=== PATIENT | male | born 1940 | race Caucasian/White ===

== ENCOUNTER 2022-11-07 04:42 | Inpatient (IN) | payer OTHER, MEDICAID ==
[~2022-11-07] VITALS: Ht 180.3 cm; Wt 63.5 kg
[2022-11-07 04:50] VITALS: BP_SYST 105
--- NOTE | 2022-11-07 05:42 | NUR ---
pt to ed 2 from local half-way. pt with large amout of soft brown feces coming throug clothes and on clothes. all clothes removed and pt cleaned. assessment completed. awaiting md godfrey and orders.
--- NOTE | 2022-11-07 06:23 | NUR ---
urine collected and covid swab collected and sent to lab.
--- NOTE | 2022-11-07 07:00 | NUR ---
called the facility the third time to get information but no answer.left voice message.
[2022-11-07 07:03] LABS: BASOPHILS % (AUTO) 0.4 % (0.0-2.0); EOSINOPHILS # (AUTO) 0.2 K/uL (0.0-0.4); EOSINOPHILS % (AUTO) 2.4 % (0.0-4.0); HEMATOCRIT 43.5 % (36-54); HEMOGLOBIN 15.3 g/dL (14.0-18.0); LYMPHOCYTES # (AUTO) 0.8 K/uL (1.0-5.5); LYMPHOCYTES % (AUTO) 8.5 % (20.5-51.5); MEAN CORPUSCULAR HEMOGLOBIN 31 pg (27-31); MEAN CORPUSCULAR HGB CONC 35 % (32-36); MEAN CORPUSCULAR VOLUME 89 fL (79.0-98.0); MONOCYTES # (AUTO) 1.1 K/uL (0.0-1.0); MONOCYTES % (AUTO) 11.1 % (1.7-9.3); NEUTROPHILS # (AUTO) 7.7 K/uL (1.8-7.7); NEUTROPHILS % (AUTO) 77.6 % (40.0-70.0); PLATELET COUNT (AUTO) 223 K/uL (130-430); RED CELL DISTRIBUTION WIDTH 13.1 % (9.0-15.0); WHITE BLOOD COUNT (AUTO) 9.9 K/uL (4.8-10.8)
[2022-11-07 07:12] LABS: ANION GAP 8 (5-15); CALCIUM 8.2 mg/dL (8.4-11.0); CHLORIDE 106 mmol/L (98-107); CREATININE 0.82 mg/dL (0.55-1.30); GLUCOSE 114 mg/dL (70-99); UREA NITROGEN, BLOOD 13 mg/dL (8-21)
[2022-11-07 07:20] LABS: ALANINE AMINOTRANSFERASE 23 U/L (12-78); ASPARTATE AMINOTRANSFERASE 16 U/L (10-37); LIPASE 52 U/L (73-393)
[2022-11-07] MEDS ORDERED: SER25 PO (07:43)
[2022-11-07] MEDS ORDERED: LORA-258 PO (07:43)
[2022-11-07] MEDS ORDERED: LACT10SO6 PO (07:43)
[2022-11-07] MEDS ORDERED: ACET160S2 PO (07:43)
[2022-11-07] MEDS ORDERED: DEXAMETHASONE SOD PHOSPHATE 4 MG/ML VIAL IVP ONE (07:45)
[2022-11-07] MEDS ORDERED: NACL 0.9% 1,000 ML IV ONE (07:45)
--- NOTE | 2022-11-07 08:10 | NUR ---
Admit bed requested Patient will be admitted to care of . Admitted to TELE unit. Diagnosis ALOC Inpatient (Yes or No) Y Observation (Yes or No) N Orientation concerns or request close to nursing station (Yes or No) N Covid Status POSI On vent or bipap N Isolation requirements Y Needs a sitter N From Home (Yes or if No enter name of facility) N Requires Dialysis (Yes or No) N Med Rec Completed (Yes of No) Y
[2022-11-07 08:31] LABS: BILIRUBIN,URINE NEGATIVE (NEGATIVE); BLOOD, URINE 2+ (NEGATIVE); CLARITY/URINE CLEAR (CLEAR); COLOR,URINE YELLOW (YELLOW); GLUCOSE,URINE NEGATIVE (NEGATIVE); KETONES,URINE NEGATIVE (NEGATIVE); PH,URINE 6.5 (5.0-8.0); PROTEIN URINE NEGATIVE (NEGATIVE)
[2022-11-07 08:32] LABS: LEUKOCYTE ESTERASE ,URINE NEGATIVE (NEGATIVE); NITRITE, URINE NEGATIVE (NEGATIVE)
[2022-11-07 08:33] LABS: BACTERIA,URINE RARE /HPF (None Seen); MUCUS,URINE 1+ /LPF (None Seen); WBC,URINE 0-3 /HPF (0-3)
--- NOTE | 2022-11-07 08:40 | NUR ---
Assumed care of patient. Patient vitals obtained and documented. Patient stable, semi-fowlers in bed.
--- NOTE | 2022-11-07 09:20 | NUR ---
Patient admitted to Tele Unit Room 133A. Report given to Arin RN and Jamin RN. Patient transfered to bed and placed on functioning Tele monitor. Patient stable and bed rails up in care of the two RNs. VS input in discharge note.
[2022-11-07 09:27] VITALS: BP_SYST 136
--- NOTE | 2022-11-07 09:27 | NUR ---
admission note: patient is transferred from ER via gurney. No pain or discomfort notes at this time. Patient is non-verbal. physical assessment is done and vitals are checked. Assessment data are gathered from Amanda. Bed in the lowest position and side rails x4 up for altered level of conscious. Room camera is on. Will continue to monitor.
[2022-11-07 10:10] VITALS: BP_SYST 136
[2022-11-07] MEDS ORDERED: ACETAMINOPHEN 325 MG TABLET PO PRN (10:15)
--- NOTE | 2022-11-07 10:39 | NUR ---
Note: Patient is transferred to CT head scan via hospital bed.
--- NOTE | 2022-11-07 10:56 | NUR ---
Note: patient is returned to floor via hospital bed. No pain or discomfort at this time.
[2022-11-07] MEDS: D5LR 1,000 ML IV SCH (12:57)
--- NOTE | 2022-11-07 13:52 | NUR ---
CONSULTATION PAGED/CALLED Reason for Consultation: [] COVID Person Who was Notified: [] CARMEN Consulting Physician: [] DR MOISES LOPEZ Carding Doubler Specialty: [] ID Ordering Physician: [] DR FAITH
[2022-11-07 16:00] VITALS: BP_SYST 141
[2022-11-07] MEDS ORDERED: QUEtiapine FUMARATE 25 MG TABLET PO SCH (18:00)
--- NOTE | 2022-11-07 19:05 | NUR ---
closing note: patient is awake and sitting quietly on the bed. Assisted to feed dinner. Swallowing well. No pain or discomfort or distress are noted at this time. Bed in the lowest position and side rails x3 on. Patient is monitoring under a camera and close to nursing station. Will endorse lacquer pin press operator nurse to continue patient care.
[2022-11-07 20:00] VITALS: BP_SYST 116
--- NOTE | 2022-11-07 20:00 | NUR ---
pt agitated and out from the bed .assisted back and propped to 30-45. offered a warm CHG bath. phototypesetting equipment monitor leads replaced .informed Dr Max of increased agitation received a med order
[2022-11-07] MEDS: HYDROCORTISONE 1%, 28.35 GM TOPICAL CREAM TP SCH (20:27)
[2022-11-07] MEDS: LORazepam 2 MG/ML VIAL IVP PRN (20:39)
--- NOTE | 2022-11-08 | NUR ---
pt resting in bed offered some shakes earlier
[2022-11-08 00:43] VITALS: BP_SYST 111
[2022-11-08 04:00] VITALS: BP_SYST 116
--- NOTE | 2022-11-08 04:39 | NUR ---
bed maintained on low position.alarm on.cam [address]vitals done and updated
[2022-11-08 06:52] LABS: ANION GAP 8 (5-15); CALCIUM 8.3 mg/dL (8.4-11.0); CHLORIDE 108 mmol/L (98-107); CREATININE 0.78 mg/dL (0.55-1.30); GLUCOSE 113 mg/dL (70-99); UREA NITROGEN, BLOOD 17 mg/dL (8-21)
[2022-11-08 07:57] LABS: BASOPHILS # (AUTO) 0.1 K/uL (0.0-0.2); BASOPHILS % (AUTO) 0.7 % (0.0-2.0); EOSINOPHILS % (AUTO) 0.5 % (0.0-4.0); HEMATOCRIT 39.7 % (36-54); HEMOGLOBIN 14.1 g/dL (14.0-18.0); LYMPHOCYTES # (AUTO) 0.9 K/uL (1.0-5.5); LYMPHOCYTES % (AUTO) 8.5 % (20.5-51.5); MEAN CORPUSCULAR HEMOGLOBIN 32 pg (27-31); MEAN CORPUSCULAR HGB CONC 36 % (32-36); MEAN CORPUSCULAR VOLUME 89 fL (79.0-98.0); MONOCYTES % (AUTO) 9.9 % (1.7-9.3); NEUTROPHILS # (AUTO) 8.1 K/uL (1.8-7.7); NEUTROPHILS % (AUTO) 80.4 % (40.0-70.0); PLATELET COUNT (AUTO) 207 K/uL (130-430); RED BLOOD CELL COUNT(AUTO) 4.47 MIL/uL (4.2-6.2); RED CELL DISTRIBUTION WIDTH 13.1 % (9.0-15.0); WHITE BLOOD COUNT (AUTO) 10.1 K/uL (4.8-10.8)
[2022-11-08 08:00] VITALS: BP_SYST 106
[2022-11-08] MEDS: HYDROCORTISONE 1%, 28.35 GM TOPICAL CREAM TP SCH (09:21)
[2022-11-08] MEDS: LORazepam 2 MG/ML VIAL IVP PRN (09:27)
[2022-11-08 13:18] VITALS: BP_SYST 117
[2022-11-08 16:48] VITALS: BP_SYST 116
--- NOTE | 2022-11-08 19:00 | NUR ---
Received in bed awake.had dinner vitals done Bps 115/52 Hr 83 RR 18. has ivf in progress.neuro assessment not able to follow commands
[2022-11-08] MEDS: D5LR 1,000 ML IV SCH (19:11)
[2022-11-08] MEDS: QUEtiapine FUMARATE 25 MG TABLET PO SCH (19:13)
[2022-11-08 20:00] VITALS: BP_SYST 115
--- NOTE | 2022-11-08 22:00 | NUR ---
cleaned with a CHG bath and linen changed
[2022-11-09 01:48] VITALS: BP_SYST 97
[2022-11-09 06:13] VITALS: BP_SYST 150
[2022-11-09 08:00] VITALS: BP_SYST 119
--- NOTE | 2022-11-09 08:00 | NUR ---
ASSESSMENT COMPLETED AT THIS TIME PT AWAKE NON ORIENTED FOLLOWS COMMANDS APPEARS TO BE IN NO PAIN WITH FLACC PAIN SCALE ASSISSTED WITH BREAKFAST BED ALARM ON BED IN LOW POSITION COVID PRECAUTIONS OBSERVED WILL CONTINUE TO MONITOR AND ASSESS CALL LIGHT WITHIN REACH WILL CONTINUE TO MONITOR AND ASSESS
[2022-11-09] MEDS: LORazepam 2 MG/ML VIAL IVP PRN (08:45)
[2022-11-09] MEDS: HYDROCORTISONE 1%, 28.35 GM TOPICAL CREAM TP SCH ×2 (08:46→21:13)
--- NOTE | 2022-11-09 13:38 | NUR ---
Dietitian Recommendations * Ordered: Finely Chopped, Mechanical Soft, Lacto-vegetarian diet * Ordered: Snacks BID Submitted for DONELL Lopez by Sowmya Matthew, MPH, RD Please see Nutrition Assessment for further details. Thanks!
--- NOTE | 2022-11-09 14:52 | NUR ---
care endorsed to rn at this time
--- NOTE | 2022-11-09 14:52 | NUR ---
Nurse Notes: RN endorsed patient to INBOUND CUSTOMER SERVICE AGENT, full report given. Patient sleeping in bed. Patient breathing even and unlabored on room air. No pain, no distress, no SOB. Bed is locked in lowest position. Call light within reach, all needs met, will continue with plan of care.
--- NOTE | 2022-11-09 14:57 | NUR ---
14:30 Patient Report Nurse Notes: Patient laying in bed ALOX4. Patient breathing even and unlabored on room air. No pain, no distress, no SOB. Bed is locked in lowest position. Call light within reach, all needs met, patient expected to discharge soon. 14:57 Discharge Nurse Notes: Patient in stable condition, breathing even and unlabored on room air. No pain, no distress, no SOB. Patient went home in private auto with . Addendum: 11/09/22 at 1525 by Сергей Hatch LVN Disregard above notes. Belong to different patient. Entered in error.
[2022-11-09] MEDS: D5LR 1,000 ML IV SCH ×2 (15:16→22:15)
--- NOTE | 2022-11-09 16:20 | NUR ---
Late Noon Nurse Notes: Patient sleeping in bed. Patient breathing even and unlabored on room air. No pain, no distress, no SOB. Bed is locked in lowest position. Call light within reach, all needs met, will continue with plan of care.
[2022-11-09 17:14] VITALS: BP_SYST 117
[2022-11-09] MEDS: QUEtiapine FUMARATE 25 MG TABLET PO SCH (17:57)
--- NOTE | 2022-11-09 18:40 | NUR ---
Closing Shift Nurse Notes: Patient laying in bed watching TV. Patient breathing even and unlabored on room air. No pain, no distress, no SOB. Bed is locked in lowest position. Call light within reach, all needs met, evening report to be given to retail shift supervisor soon.
--- NOTE | 2022-11-09 19:00 | NUR ---
received in bed awake oriented to self vitals done and recorded .offered a CHG bath and linen changed .assisted with Dinner pt ate about 50% of the meal offered later called enquiring about the patient
[2022-11-09 20:11] VITALS: BP_SYST 137
[2022-11-10] VITALS (9 sets, daily range): BP systolic 96–146
--- NOTE | 2022-11-10 | NUR ---
pt is asleep at this moment .IVF in progress
--- NOTE | 2022-11-10 06:00 | NUR ---
pts iv infusion in progress ,neuro assessment pt appears withdrawn.BPs 97/47 .repeated after 15 minutes .morning cares given, linen and position changed
--- NOTE | 2022-11-10 07:45 | NUR ---
received pt alert, disoriented, with only verbal response of "what?" previous iv removed due to infiltration; swollen, red, tender. new iv inserted immediately to right FA 20g. fluid per orders. bed alarm on, observed with video for safety.
[2022-11-10] MEDS: HYDROCORTISONE 1%, 28.35 GM TOPICAL CREAM TP SCH ×2 (09:43→21:53)
[2022-11-10] MEDS: LORazepam 2 MG/ML VIAL IVP PRN (11:40)
--- NOTE | 2022-11-10 11:40 | NUR ---
pt confused got out of bed in room. removed telemetry. seen by clinical research monitor who assisted pt back to bed. gown replaced, iv intact, fluid per orders. medicated by resource RN for agitation.
--- NOTE | 2022-11-10 12:21 | NUR ---
pt in bed. telemetry on; NSR respirations even, unlabored. no distress
--- NOTE | 2022-11-10 12:37 | NUR ---
Logging Tractor Operator DIRECTOR OF VENDOR MANAGEMENT received two voice mail mgs. from pts. , Amanda asking if someone could call her back as she urgently needed to speak to a social media manager. DIRECTOR OF VENDOR MANAGEMENT called Amanda back and she was very grateful. Amanda stated she believes her is going to need a SNF. Pt. came from [facility] [place] and will not be going back. feels pt. has a skilled need. DIRECTOR OF VENDOR MANAGEMENT had read in PT notes pt. is unable to walk and needs max. assist. added the B & C is too expensive and takes up all of her income leaving none for bills. Additionally, stated she was discharged from the hospital because she has heart failure and hypertension and needs to take medication, but is currently unable to get it delivered. Amanda's insurance, [employer] was going to have her meds. delivered but since she is staying with a friend in [facility], meds cannot be delivered unless she is in [facility]. DIRECTOR OF VENDOR MANAGEMENT asked if she can use a friends address in [facility]. but she stated she has so much going on and she said her is priority, has dementia and she cannot care for him as she has heart failure. DIRECTOR OF VENDOR MANAGEMENT provided with a couple of resources for free or low cost health care and asked her to call the numbers to see if she can get her meds. Lastly DIRECTOR OF VENDOR MANAGEMENT suggested she contact her insurance so they can help get her meds to her. DIRECTOR OF VENDOR MANAGEMENT will check in with her after the morning meeting. Addendum: 11/10/22 at 1404 by Alison HENDERSON Logging Tractor Operator DIRECTOR OF VENDOR MANAGEMENT called back to conduct a Discharge Planning. stated pt. had been at [facility] for a month and was discharged on 09/16/22 and the Cmm Inspector there found the B & C for ptAlex Alicia. Re. Amanda, she had also been in the hospital. She had passed out and someone called 911. the [place] police and paramedics stated she is unable to continue to care for pt. When she was in the hospital, she had been sent to [facility]. She is staying with a friend on her recliner at [address] [place] [address] in [place], but is not allowed to stay there. She has her name down and paperwork turned in for a alf apt. and is just waiting. Amanda stated her plan is to get a place and have pt. stay with her and she would care for him. Pt. can feed self and cooks and showers him. is also sick and is seems unlikely she would be able to provide care for pt. stated before his hospital stay at [facility], he was strong, walking on his own, feeding self and talking. At [facility], he had been prescribed a generic med for Seroquel. was in disagreement that pt was depressed or Schizophrenic. Amanda stated he does have Dementia. Amanda added at the B & C they were giving him 25 mg of generic seroquel in the morning and 25mg in the evening and he would wake up groggy. DIRECTOR OF VENDOR MANAGEMENT asked Amanda about any family. Amanda stated they have a daughter in [place] with 3 children and another daughter in [place]. DIRECTOR OF VENDOR MANAGEMENT asked if she has reached out to her daughters since she is now homeless. She stated she has not because they are upon hard times as well. DIRECTOR OF VENDOR MANAGEMENT asked about reaching out to her daughters. Amanda did not want to trouble them. They get a total of $1,400 in SSI and the B & C was $1325 monthly. Re. the PCP, Amanda asked if DIRECTOR OF VENDOR MANAGEMENT could call the B & C as they disenrollment ptAlex Alicia from insurance [employer]. Addendum: 11/10/22 at 1442 by Alison Niño DIRECTOR OF VENDOR MANAGEMENT guest services manager stated she cannot use her dtr Zonia in [place] as a resource because they are not on speaking terms. Other dtr. Baljeet in [place] is about to graduate from [employer], . gave DIRECTOR OF VENDOR MANAGEMENT permission to call this daughter. MSE called and left a message for Kasey. DIRECTOR OF VENDOR MANAGEMENT called [facility] contact, BRIEN Ames at [phone]. Joceline returned DIRECTOR OF VENDOR MANAGEMENT's phone call and agreed to help look for a room and board and B & C for pt. Joceline will also see if she can assist and help couple apply for [facility]. If she is able to find a placement, she will need a H & P and a facesheet, fax is [phone]. DIRECTOR OF VENDOR MANAGEMENT let Joceline know prefers [facility].
--- NOTE | 2022-11-10 15:26 | NUR ---
PHYSICAL THERAPY CO-SIGN The Physical Therapy Progress Notes documented by Exposure Machine Operator have been reviewed. Reviewed/Co-Signed by: Jase Kaur Documentation Done by:TRISTIN GLOVER Addendum: 11/10/22 at 1527 by Jase Kaur PT Amended: Links added.
[2022-11-10] MEDS: D5LR 1,000 ML IV SCH (17:44)
[2022-11-10] MEDS: QUEtiapine FUMARATE 25 MG TABLET PO SCH (17:44)
--- NOTE | 2022-11-10 19:30 | NUR ---
Recieved pt sitting in bed ,eating dinner.assisted pt, ate 75% dinner. cleaned and linen changed. vitals updated WNL
[2022-11-11] VITALS: BP_SYST 135
--- NOTE | 2022-11-11 | NUR ---
positioned to side .pt is oriented to self .no sign of pain observed .
--- NOTE | 2022-11-11 04:00 | NUR ---
Bed bathed, linen changed pts vitals are within the normal range
[2022-11-11 05:28] VITALS: BP_SYST 116
[2022-11-11 08:00] VITALS: BP_SYST 122
--- NOTE | 2022-11-11 08:00 | NUR ---
Opening Nurse Notes: Patient laying in bed. A/O x 1, Mosotho speaking. Patient breathing even and unlabored on room air. No pain, no distress, no SOB. Patient is on a mechanical soft diet. Patient has RFA 20g. Bed is locked in lowest position. Call light within reach, all needs met, will continue with plan of care.
[2022-11-11] MEDS: HYDROCORTISONE 1%, 28.35 GM TOPICAL CREAM TP SCH ×2 (09:38→21:13)
[2022-11-11] MEDS: D5LR 1,000 ML IV SCH (09:39)
[2022-11-11 11:56] VITALS: BP_SYST 130
--- NOTE | 2022-11-11 12:00 | NUR ---
Afternoon Nurse Notes: Patient laying in bed watching TV. Patient breathing even and unlabored on room air. No pain, no distress, no SOB. Bed is locked in lowest position. Call light within reach, all needs met, will continue with plan of care.
--- NOTE | 2022-11-11 12:36 | NUR ---
Mastercam Programmer SUPERVISOR DENTURE DEPARTMENT received a call back from pts. dtr in [place], . SUPERVISOR DENTURE DEPARTMENT called twice in hopes of reaching her. SUPERVISOR DENTURE DEPARTMENT called Joceline from [facility] left a message asking for an update SUPERVISOR DENTURE DEPARTMENT called Liliana Covarrubias from [facility], , shared with her the needs of this pt. and that his is homeless, re. income. Liliana asked for a facesheet to try to look for a room to rent. SUPERVISOR DENTURE DEPARTMENT will fax. SUPERVISOR DENTURE DEPARTMENT called Sarah Venegas at [facility] as she was going to send referral to [facility] for Medi-[facility]. SUPERVISOR DENTURE DEPARTMENT left a message. SUPERVISOR DENTURE DEPARTMENT called Smith Sunshine from [facility], who advised SUPERVISOR DENTURE DEPARTMENT look into placing pt. in a SNF as the Medical hayder is being processed. Qualifying for Medical is important and ideal. Smith also stated the SNF could try to apply for a waiver program. Smith also mentioned a SNF that is not the nicest in [place] on [facility]. Lastly, Smith mentioned [facility], [facility] in [place] as a possible placement., . Todays facesheet shows pt. not only has Medicare A & B, but also Medical. SUPERVISOR DENTURE DEPARTMENT will call Vee at [facility] to see if pt. can go once medically discharged. SUPERVISOR DENTURE DEPARTMENT left a message. Question to ask, do they take Covid and they may be able to apply for a Medical Waiver, perhaps both pt. and can be there together. Addendum: 11/11/22 at 1343 by Alison HENDERSON Mastercam Programmer SUPERVISOR DENTURE DEPARTMENT spoke to Vee from [facility] who asked for clinicals, stated since pt. has Covid, he can go to their sister facility, [facility] in [place] and once he is out of the quarantine phase, he can be transferred to their facility. SUPERVISOR DENTURE DEPARTMENT faxed over clinicals to [facility]. [phone] .
--- NOTE | 2022-11-11 14:29 | NUR ---
Burr Machine Operator NETTING INSPECTOR made a follow up call to [facility]. NETTING INSPECTOR spoke to Leobardo twice today and was informed [facility] is still waiting for an auth. Nusrat is following up with Valentin attempting to get an auth and was told the Rn. still has to review and give auth. Leobardo will let NETTING INSPECTOR know once he hears back and NETTING INSPECTOR can get pt. ready for transfer and transport. NETTING INSPECTOR will remain available as needed.
--- NOTE | 2022-11-11 16:00 | NUR ---
Late Noon Nurse Notes: Patient laying in bed. Patient breathing even and unlabored on room air. No pain, no distress, no SOB. Bed is locked in lowest position. Call light within reach, all needs met, will continue with plan of care.
[2022-11-11 16:56] VITALS: BP_SYST 148
--- NOTE | 2022-11-11 18:45 | NUR ---
Closing Shift Nurse Notes: Patient laying in bed watching TV. Patient breathing even and unlabored on room air. No pain, no distress, no SOB. Bed is locked in lowest position. Call light within reach, all needs met, evening report to be given to deicer element winder machine soon.
[2022-11-11 19:50] VITALS: BP_SYST 135
--- NOTE | 2022-11-11 19:55 | NUR ---
RECEIVED PT IN BED, AOX0, PT NON VERBAL, AND DISORIENTED, COMPLETE BR, ROOM AIR, VSS, NOTED BRUISES ON BUE, ON DROPLET ISOLATION, D5LR AT 50CC ONGOING TO FA, BED ALARM ON, LOW BED, WILL CONTINUE WIT POC.
[2022-11-11] MEDS: QUEtiapine FUMARATE 25 MG TABLET PO SCH (21:14)
[2022-11-12 02:38] VITALS: BP_SYST 123
--- NOTE | 2022-11-12 06:44 | NUR ---
PT IN BED, AOX0, NON VERBAL WITH DISORIENTATION, ON BR, ROOM AIR, VSS, ON DROPLET ISOLATION, D5LR AT 50CC ONGOING TO FA, BED ALARM ON, LOW BED, SAFETY PREC MAINTAINED, WILL ENDORSE TO AM SHIFT.
[2022-11-12 07:27] LABS: BASOPHILS % (AUTO) 0.7 % (0.0-2.0); EOSINOPHILS # (AUTO) 0.2 K/uL (0.0-0.4); EOSINOPHILS % (AUTO) 2.9 % (0.0-4.0); LYMPHOCYTES # (AUTO) 0.9 K/uL (1.0-5.5); LYMPHOCYTES % (AUTO) 14.1 % (20.5-51.5); MEAN CORPUSCULAR HEMOGLOBIN 31 pg (27-31); MEAN CORPUSCULAR HGB CONC 35 % (32-36); MEAN CORPUSCULAR VOLUME 89 fL (79.0-98.0); MONOCYTES # (AUTO) 0.9 K/uL (0.0-1.0); MONOCYTES % (AUTO) 12.8 % (1.7-9.3); NEUTROPHILS # (AUTO) 4.6 K/uL (1.8-7.7); NEUTROPHILS % (AUTO) 69.5 % (40.0-70.0); PLATELET COUNT (AUTO) 194 K/uL (130-430); RED CELL DISTRIBUTION WIDTH 13.1 % (9.0-15.0); WHITE BLOOD COUNT (AUTO) 6.7 K/uL (4.8-10.8)
[2022-11-12 08:00] VITALS: BP_SYST 134
[2022-11-12 08:18] LABS: ALANINE AMINOTRANSFERASE 20 U/L (12-78); ALBUMIN 2.3 g/dL (3.4-4.8); ANION GAP 8 (5-15); ASPARTATE AMINOTRANSFERASE 22 U/L (10-37); CALCIUM 7.8 mg/dL (8.4-11.0); CHLORIDE 109 mmol/L (98-107); CREATININE 0.75 mg/dL (0.55-1.30); GLUCOSE 95 mg/dL (70-99); TOTAL BILIRUBIN 0.8 mg/dL (0.0-1.0); UREA NITROGEN, BLOOD 15 mg/dL (8-21)
[2022-11-12] MEDS: HYDROCORTISONE 1%, 28.35 GM TOPICAL CREAM TP SCH ×2 (09:24→22:13)
[2022-11-12] MEDS: D5LR 1,000 ML IV SCH (09:25)
[2022-11-12 12:00] VITALS: BP_SYST 132
--- NOTE | 2022-11-12 15:58 | NUR ---
RESUMED CARE: RECEIVED BEDSIDE SBAR FROM MINI RN. PATIENT IS STABLE NO S/S OF ANY DISTRESS, IN ISO FOR COVID-19 DAY 4, IV INTACT TO RIGHT FA 20G, BED REST, ROOM AIR 95-97%, WILL CONT TO MONITOR PATIENT PER ORDERS FULL CODE.
[2022-11-12 16:38] VITALS: BP_SYST 135
[2022-11-12] MEDS: QUEtiapine FUMARATE 25 MG TABLET PO SCH (17:43)
--- NOTE | 2022-11-12 18:29 | NUR ---
CLOSING NOTES: PATIENT REMAINED STABLE THOUGHT THE DAY, NO S/S OF ANY DISTRESS, BED AT LOCKED AND LOW POSITION CALL LIGHT IN REACH. ALL SAFETY CHECKS DONE THOUGHT THE DAY WILL GIVE PM SHIFT NURSE BEDSIDE SBAR.
--- NOTE | 2022-11-12 19:47 | NUR ---
RECEIVED PT IN BED, AOX0, PT NON VERBAL, NORMAL BREATHING, NOP RESPIRATORY DISTRESS NOTED, DISORIENTED, S/P FALL TODAY, COMPLETE BR, ON ROOM AIR, NOTED WITH BRUISES ON BUE, ON DROPLET ISOLATION, D5LR AT 50CC ONGOING TO FA, BED ALARM ON, LOW BED, WILL CONTINUE WIT POC.
[2022-11-12 20:00] VITALS: BP_SYST 125
--- NOTE | 2022-11-12 21:40 | NUR ---
PT'S , HECTOR MAYA CALLED ATT AND STATES SHE HAS A CONCERN REGARDING MEDS BEING GIVEN TO HER AND THAT SEROQUEL 75MG IS TOO HIGH, THAT PT USED TO GET 12.5MG WHEN SHE WAS TAKING CARE OF PT AT HOME. ASKED PT'S IF SHE HAS DISCUSSED THIS CONCERN WITH PT DOCTOR BUT STATED NO. INFORMED PT'S THAT I RECEIVED HER CONCERN AND WILL RELAY TO AM SHIFT TO INFORM THE DOCTOR. WANTED TO TALK TO DOCTOR BUT TOLD HER DOCTOR WILL BE AVAILABLE DURING THE DAY AND I WILL RELAY HER REQUEST TO TALK TO DOCTOR TO AM SHIFT. PT'S VERBALIZED UNDERSTANDING
[2022-11-13 01:33] VITALS: BP_SYST 130
[2022-11-13] MEDS: D5LR 1,000 ML IV SCH (05:39)
--- NOTE | 2022-11-13 06:35 | NUR ---
PT IN BED, AOX0, NON VERBAL WITH DISORIENTATION, ON BR, ROOM AIR, VSS, ON DROPLET ISOLATION, D5LR AT 50CC ONGOING TO FA, BED ALARM ON, LOW BED, S/P MONITORING FOR FALL, NO CHANGES NOTICED THIS SHIFT, SAFETY PREC MAINTAINED, CALL LIGHT WITHIN REACH, WILL ENDORSE TO AM SHIFT.
[2022-11-13 08:00] VITALS: BP_SYST 141
--- NOTE | 2022-11-13 08:03 | NUR ---
PHYSICAL THERAPY CO-SIGN The Physical Therapy Progress Notes documented by Hatch Tender have been reviewed. Reviewed/Co-Signed by: Omero Zavala Documentation Done by:TRISTIN GLOVER Addendum: 11/13/22 at 0803 by Omero Zavala PT Amended: Links added.
[2022-11-13] MEDS: HYDROCORTISONE 1%, 28.35 GM TOPICAL CREAM TP SCH (08:54)
[2022-11-13] MEDS ORDERED: QUEtiapine FUMARATE 25 MG TABLET PO PRN (11:30)
[2022-11-13 11:47] VITALS: BP_SYST 121
--- NOTE | 2022-11-13 11:59 | NUR ---
pt to be discharge to [facility] phone#[phone] Medic 1 ambulance for brain picker at 2:00PM phone#[phone] pt packet given to SABI Motley
[2022-11-13] MEDS ORDERED: SER25 PO (13:22)
[2022-11-13 13:29] VITALS: BP_SYST 141
--- NOTE | 2022-11-13 15:39 | NUR ---
Pt transferred to [facility]. Pt's Amanda aware. Sent with belongings and food that the brought today. RFA PIV removed and intact. Meliton given report at [facility]. Ambulance given report.
[2022-11-13 15:54] VITALS: BP_SYST 120
--- NOTE | 2022-11-18 09:53 | NUR ---
Golf Course Keeper ASSISTANT BOOKKEEPER was finally able to connect with stepdaughter to pt. Catrachito Alicia, who stated she had been in the [facility], resides in [place]. Dtr. stated she is aware Ravin is at [facility] and has spoken to her mom a little bit. Dt. is aware of her mom's homeless status and said her and her two siblings have found assisted living and housing for Peter and mom, but they always end up leaving the housing. They have been in numerous assisted living and apts. but walk away from them. Dtr. is aware Ravin has Dementia and stated while in Ravin's 's care, he wanders off every day and many times cannconcetta find him, will call the police who spend hours looking for him. Dtr. know cannot care for pt. but is in denial. All 3 kids have been telling since 2018 they need assisted living and cannot provide care. Dtr. also stated mom may be bi-polar as per the insurance CM at [facility]'s speculation. ASSISTANT BOOKKEEPER shared info re. Ravin's placement at [facility] and giving ASSISTANT BOOKKEEPER permission to speak to her. ASSISTANT BOOKKEEPER asked dtr to team up with siblings.
== END 2022-11-13 15:39 | DRG 178 ==
LOC: SED 04:42 → STU 08:09 → SMU 11-12 16:04
PROVIDERS: ADMIT Internal Medicine; ATTEND Internal Medicine
DX: U07.1 COVID-19 (principal); E44.1 Mild protein-calorie malnutrition; Z68.1 Body mass index [BMI] 19.9 or less, adult; F20.9 Schizophrenia, unspecified; I10 Essential (primary) hypertension; L21.9 Seborrheic dermatitis, unspecified; F03.90 Unspecified dementia, unspecified severity, without behavioral disturbance, psychotic disturbance, mood disturbance, and anxiety
CPT/HCPCS: 36415; 70450-TC; 71045; 76376; 80048; 80053; 81000; 83690; 84484; 85025; 93005; 96361; 96374; 97110-GP; 97116-GP; 97163-GP; 97530-GP; 99285; G0378; J1100; J2060